=== PATIENT | male | born 1955 | race Caucasian/White ===

== ENCOUNTER 2019-12-27 18:57 | Emergency (ER) | payer MEDICAID ==
[~2019-12-27] VITALS: Ht 182.9 cm; Wt 130.0 kg
--- NOTE | 2019-12-27 19:07 | NUR ---
PT BIB EMS FOR FLANK PAIN X 4 HOURS. PT SAYS IT CAME ON ALL OF A SUDDEN. PT DENIES HX OF KIDNEY STONES. PT RESTING IN [facility]. CONNECTED TO MONITORING EQUIPMENT. URINAL HAS BEEN PROVIDED.
[2019-12-27] MEDS ORDERED: HYDROmorphone 1 MG/ML, 1ML INJ ONE (19:12)
[2019-12-27 19:21] LABS: BASOPHILS # (AUTO) 0.02 x10^3/uL (0-0.1); BASOPHILS % (AUTO) 0 % (0-1); EOSINOPHILS # (AUTO) 0.14 x10^3/uL (0-0.4); EOSINOPHILS % (AUTO) 1 % (1-7); LYMPHOCYTES # (AUTO) 1.73 x10^3/uL (1-3.4); LYMPHOCYTES % (AUTO) 15 % (22-44); MD NO; MEAN CORPUSCULAR HEMOGLOBIN 32.2 pg (27.5-34.5); MEAN CORPUSCULAR HGB CONC 32.7 g/dL (33.2-36.2); MEAN CORPUSCULAR VOLUME 98.7 fL (81-97); MEAN PLATELET VOLUME 7.2 fL (7.4-10.4); MONOCYTES # (AUTO) 0.09 x10^3/uL (0.2-0.8); MONOCYTES % (AUTO) 1 % (2-9); NEUTROPHILS % (AUTO) 83 % (42-75); PLATELET COUNT 223 x10^3/uL (130-400); RED BLOOD COUNT 4.46 x10^6/uL (4.38-5.82); RED CELL DISTRIBUTION WIDTH 13.1 % (9.4-14.8)
[2019-12-27] MEDS ORDERED: PLEASE ENTER HEIGHT AND WEIGHT MC SCH (19:30)
[2019-12-27] MEDS ORDERED: HYDROmorphone/PF 4 MG/ML, 1ML IM ONE (19:30)
[2019-12-27 19:31] LABS: ALBUMIN 3.4 g/dL (3.4-5.0); ANION GAP 15 mmol/L (5-15); CALCIUM 8.4 mg/dL (8.5-10.1); CHLORIDE 104 mmol/L (98-107); CREATININE 1.22 mg/dL (0.7-1.3)
--- NOTE | 2019-12-27 19:31 | NUR ---
MAXX SCHULER (SISTER) WANTS UPDATE ON PATIENT. [phone]
[2019-12-27 19:38] LABS: MICROSCOPIC NOT IND
--- NOTE | 2019-12-27 19:39 | NUR ---
PT RESTING IN [facility]. EMESIS BAG PROVIDED.
[2019-12-27] MEDS ORDERED: HYDROmorphone 2 MG/ML, 1ML IM ONE (20:00)
--- NOTE | 2019-12-27 20:28 | NUR ---
PT PROVIDED WITH ARI
[2019-12-27] MEDS ORDERED: SODIUM CHLORIDE FLUSH 10ML SYR IVF ONE (20:30)
[2019-12-27] MEDS ORDERED: INSULIN REGULAR 100 UNITS/ML, 3ML VIAL IVPush ONE (20:30)
[2019-12-27] MEDS ORDERED: SODIUM CHLORIDE 0.9% 1,000ML IVBOLUS ONE (20:30)
[2019-12-27] MEDS ORDERED: INSULIN SINGLE DOSE, ER ONE (20:38)
--- NOTE | 2019-12-27 20:42 | NUR ---
PT MEDICATED PER MAR
[2019-12-27] MEDS ORDERED: MAGNESIUM SULFATE PMX 2GM/50ML 50 ML ONE (20:57)
[2019-12-27] MEDS ORDERED: MAGNESIUM SULFATE PMX 2GM/50ML 50 ML IV ONE (21:00)
[2019-12-27 21:35] LABS: ACETONE, SERUM Negative (Negative)
[2019-12-27 22:03] LABS: ANION GAP 8 mmol/L (5-15); CALCIUM 8.6 mg/dL (8.5-10.1); CHLORIDE 107 mmol/L (98-107); CREATININE 1.13 mg/dL (0.7-1.3)
[2019-12-27 22:32] VITALS: BP 136/79
== END 2019-12-27 22:47 | disposition home or self-care (01) ==
LOC: ED 22:00
DX: M54.5 Low back pain (principal); E11.9 Type 2 diabetes mellitus without complications; I11.9 Hypertensive heart disease without heart failure; E78.00 Pure hypercholesterolemia, unspecified; Z86.73 Personal history of transient ischemic attack (TIA), and cerebral infarction without residual deficits
CPT/HCPCS: 36415; 74176; 80048; 81003; 82010; 82040; 82800; 83735; 85025; 93005; 96365; 96366; 96372; 96375; 99285; J1170; J1815; J3475; J7030; 96361